=== PATIENT | female | born 1940 | race Asian ===

== ENCOUNTER 2017-02-12 20:00 | Emergency (ER) | payer MEDICARE, MEDICAID ==
[~2017-02-12] VITALS: Ht 160 cm; Wt 63.5 kg
[2017-02-12] MEDS ORDERED: HUMALOG100 UNIT/1 SUBQ (20:06)
[2017-02-12] MEDS ORDERED: LOVENOX10 M1 SUBQ (20:06)
[2017-02-12] MEDS ORDERED: WARFARIN SODIUM5 MG ORAL (20:06)
[2017-02-12] MEDS ORDERED: DONEPEZIL HCL5 MG ORAL (20:06)
[2017-02-12] MEDS ORDERED: DOCUSATE SODIU100 MG ORAL (20:06)
[2017-02-12] MEDS ORDERED: NAMENDA10 MG ORAL (20:06)
[2017-02-12 20:07] VITALS: BP 105/66
--- NOTE | 2017-02-12 20:14 | Emergency Room Report ---
History of Present Illness General Chief Complaint: Abdominal Pain Source: Patient, Medical Record (ASHLEIGH AVILA D.O.) Present Illness HPI Patient presents with complaints of elevated INR levels The patient had right hip surgery approximately 10-12 days ago patient was on Coumadin and Lovenox There is a note that the Coumadin was discontinued several days ago however repeat INR exam reveals elevated numbers Patient's blood work reviewed reveals INR of 15 3 days ago it appears to have decreased to 13 yesterday, and there was a reading of 9.6 today Patient is on Coumadin for DVT This was developed after the hip surgery (ASHLEIGH AVILA D.O.) Allergies: Coded Allergies: No Known Allergies (Unverified , 02/12/17) Patient History Limited by: medical condition Past Medical History: see triage record Pertinent Family History: unable to obtain Last Menstrual Period: n/a Reviewed Nursing Documentation: PMH: Agreed, PSxH: Agreed (ASHLEIGH AVILA D.O.) Nursing Documentation-PMH Past Medical History: No History, Except For Hx Hypertension: Yes Hx Diabetes: Yes - dm2 (ASHLEIGH AVILA D.O.) Review of Systems All Other Systems: limited - Other than the ones mentioned in the history of present illness all others are reviewed however they do stay limited due to the patient's mental status (ASHLEIGH AVILA D.O.) Physical Exam Vital Signs Date Time Temp Pulse Resp B/P (MAP) Pulse Ox O2 Delivery O2 Flow Rate FiO2 02/12/17 19:57 99.3 75 16 105/66 98 Sp02 EP Interpretation: reviewed, normal General Appearance: well appearing, no apparent distress Head: normocephalic, atraumatic Eyes: bilateral eye PERRL, bilateral eye EOMI ENT: normal pharynx, no angioedema Neck: full range of motion, supple Respiratory: lungs clear Cardiovascular #1: regular rate, rhythm, no edema Gastrointestinal: non tender, soft Musculoskeletal: other - No obvious expanding hematoma on the right side Neurologic: responsive - to physical stimuli Skin: other - Several areas of bruising and ecchymosis no obvious expanding hematomas or active hemorrhage, Lymphatic: no adenopathy (ASHLEIGH AVILA D.O.) Medical Decision Making Diagnostic Impression: Primary Impression: Supratherapeutic INR ER Course Received signout 76-year-old female history of hip fracture coming from [facility] with elevated INR INR currently is 8.[address] Flores (ass w/ Dr ibanez), there is no evidence of active bleeding, CT head is negative, will give the patient 1 mg vitamin K subcutaneous Discharge back to [facility] Laboratory Tests Test 02/12/17 21:00 White Blood Count 8.5 K/UL (4.8-10.8) Red Blood Count 4.04 M/UL (4.20-5.40) L Hemoglobin 13.0 G/DL (12.0-16.0) Hematocrit 38.5 % (37.0-47.0) Mean Corpuscular Volume 95 FL (80-99) Mean Corpuscular Hemoglobin 32.2 PG (27.0-31.0) H Mean Corpuscular Hemoglobin Concent 33.8 G/DL (32.0-36.0) Red Cell Distribution Width 12.6 % (11.6-14.8) Platelet Count 408 K/UL (150-450) Mean Platelet Volume 4.8 FL (6.5-10.1) L Neutrophils (%) (Auto) 65.4 % (45.0-75.0) Lymphocytes (%) (Auto) 24.4 % (20.0-45.0) Monocytes (%) (Auto) 6.9 % (1.0-10.0) Eosinophils (%) (Auto) 1.8 % (0.0-3.0) Basophils (%) (Auto) 1.5 % (0.0-2.0) Prothrombin Time 85.3 SEC (9.30-11.50) H Prothrombin Time INR 8.0 (0.9-1.1) *H PTT 65 SEC (23-33) H Sodium Level 136 mEQ/L (135-145) Potassium Level 4.5 mEQ/L (3.4-4.9) Chloride Level 99 mEQ/L (98-107) Carbon Dioxide Level 25 mEQ/L (20-30) Anion Gap 12 (5-15) Blood Urea Nitrogen 13 mg/dL (7-23) Creatinine 0.6 mg/dL (0.5-0.9) Estimate Glomerular Filtration Rate mL/min (>60) Glucose Level 106 mg/dL (74-106) Calcium Level 9.1 mg/dL (8.6-10.2) Total Bilirubin 0.4 mg/dL (0.0-1.2) Aspartate Amino Transferase (AST) 39 U/L (5-40) Alanine Aminotransferase (ALT) 48 U/L (3-33) H Alkaline Phosphatase 143 U/L (35-104) H Total Creatine Kinase 28 U/L (26-140) Creatine Kinase MB < 1.5 ng/mL (< 3.8) Creatine Kinase MB Relative Index 5.3 Troponin I < 0.30 ng/mL (<=0.30) Total Protein 7.2 g/dL (6.6-8.7) Albumin 3.2 g/dL (3.5-5.2) L Globulin 4.0 g/dL Albumin/Globulin Ratio 0.8 (1.0-2.7) L Lipase 93 U/L (< 60) H (Ania Zaman M.D.) Rhythm Strip Diag. Results EP Interpretation: yes Rate: 72 Rhythm: NSR, no PVC's, no ectopy (Ania Zaman M.D.) CT/MRI/US Diagnostic Results CT/MRI/US Diagnostic Results : Imaging Test Ordered: CT head Impression Received signout 76-year-old female history of hip fracture coming from SNF with elevated INR INR currently is 8.[address] Flores (assoc w/ Dr ibanez), there is no evidence of active bleeding, CT head is negative, will give the patient 1 mg vitamin K subcutaneous Discharge back to SNF (Ania Zaman M.D.) Last Vital Signs Date Time Temp Pulse Resp B/P (MAP) Pulse Ox O2 Delivery O2 Flow Rate FiO2 02/12/17 19:57 99.3 75 16 105/66 98 (ASHLEIGH AVILA D.O.) Disposition: XFER SNF Condition: Stable Additional Instructions: Patient's INR was 8.0 There is no evidence of bleeding CT head is negative 1 mg of vitamin K subcutaneous given Please continue to hold Coumadin tonight Please followup with patient's primary care within one day ASHLEIGH AVILA D.O. Feb 12, 2017 20:14 Ania Zaman M.D. Feb 12, 2017 22:06
[2017-02-12 21:30] LABS: BASOPHILS % (AUTO) 1.5 % (0.0-2.0); EOSINOPHILS % (AUTO) 1.8 % (0.0-3.0); LYMPHOCYTES % (AUTO) 24.4 % (20.0-45.0); MEAN CORPUSCULAR HEMOGLOBIN 32.2 PG (27.0-31.0); MEAN CORPUSCULAR HGB CONC 33.8 G/DL (32.0-36.0); MEAN CORPUSCULAR VOLUME 95 FL (80-99); MEAN PLATELET VOLUME 4.8 FL (6.5-10.1); MONOCYTES % (AUTO) 6.9 % (1.0-10.0); NEUTROPHILS % (AUTO) 65.4 % (45.0-75.0); PLATELET COUNT 408 K/UL (150-450); RED BLOOD COUNT 4.04 M/UL (4.20-5.40); RED CELL DISTRIBUTION WIDTH 12.6 % (11.6-14.8); WHITE BLOOD COUNT 8.5 K/UL (4.8-10.8)
[2017-02-12 21:37] LABS: ALANINE AMINOTRANSFERASE 48 U/L (3-33); ALBUMIN/GLOBULIN RATIO 0.8 (1.0-2.7); ANION GAP 12 (5-15); ASPARTATE AMINO TRANSFERASE 39 U/L (5-40); CALCIUM 9.1 mg/dL (8.6-10.2); CARBON DIOXIDE 25 mEQ/L (20-30); CHLORIDE 99 mEQ/L (98-107); CREATININE 0.6 mg/dL (0.5-0.9); HEMOLYSIS 6; LIPASE 93 U/L (< 60); POTASSIUM 4.5 mEQ/L (3.4-4.9); SODIUM 136 mEQ/L (135-145); TOTAL PROTEIN 7.2 g/dL (6.6-8.7); TROPONIN I < 0.30 ng/mL (<=0.30)
[2017-02-12 21:45] LABS: PROTHROMBIN TIME 85.3 SEC (9.30-11.50)
[2017-02-12 21:47] LABS: CKMB < 1.5 ng/mL (< 3.8)
[2017-02-12 22:38] VITALS: BP 116/65
[2017-02-12] MEDS ORDERED: Phytonadione 10 mg/mL 1ml amp ONE (22:48)
[2017-02-12 23:05] VITALS: BP 105/66
[2017-02-12] MEDS ORDERED: Phytonadione 10 mg/mL 1ml amp SUBQ ONE (23:30)
--- NOTE | 2017-02-13 09:02 | Diagnostic Imaging Report ---
Indication: Attain Technique: spiral acquisitions obtained through the brain. Angled axial and coronal 5 x 5 mm slices were reconstructed. No IV contrast utilized. Radiation dose was minimized using automated exposure control Total dose length product 1389 mGycm. CTDIvol(s) 70 mGy Comparison: none FINDINGS: No acute hemorrhage or edema. No mass effect or midline shift. There is age-related enlargement of the ventricles and extra axial CSF spaces. There is periventricular deep white matter ischemic change. Normal welsh-white differentiation. Visualized orbits are unremarkable. Visualized sinuses are unremarkable. Intact calvarium. 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 IMPRESSION: Chronic and age-related changes. Negative for acute intracranial bleed or mass effect This agrees with the preliminary interpretation provided overnight by [facility] teleradiology service. The CT scanner at [facility] is accredited by the [employer] and the scans are performed using protocols designed to limit radiation exposure to as low as reasonably achievable to attain images of sufficient resolution adequate for diagnostic evaluation
--- NOTE | 2017-02-13 16:30 | Cardiology Report ---
APPROVED REPORT EKG Measurement Heart [id number] ID [id number] Normal sinus rhythm Possible Inferior infarct, age undetermined Abnormal ECG
== END 2017-02-12 23:05 ==
LOC: EDBD 20:00 → EMR 20:42 → UNDOADMIN 20:50 → 4W 20:50 → EDBEDREQ 20:56 → CANBEDREQ 22:02 → EMR 23:05
DX: Z51.81 Encounter for therapeutic drug level monitoring (principal); Z79.01 Long term (current) use of anticoagulants; Z98.890 Other specified postprocedural states; I82.409 Acute embolism and thrombosis of unspecified deep veins of unspecified lower extremity; I10 Essential (primary) hypertension; E11.9 Type 2 diabetes mellitus without complications
CPT/HCPCS: 36415; 70450; 80053; 82550; 82553; 83690; 84484; 85025; 85610; 85730; 93005; 96372; 99284; J3430

== ENCOUNTER 2017-03-10 14:29 | Emergency (ER) | payer MEDICARE, MEDICAID ==
[~2017-03-10] VITALS: Ht 160 cm; Wt 63.5 kg
[~2017-03-10 14:29] MED LIST: DOCUSATE SODIU100 MG ORAL; DONEPEZIL HCL5 MG ORAL; HUMALOG100 UNIT/1 SUBQ; LOVENOX10 M1 SUBQ; NAMENDA10 MG ORAL; WARFARIN SODIUM5 MG ORAL
[2017-03-10 14:53] VITALS: BP 124/78
--- NOTE | 2017-03-10 15:09 | Emergency Room Report ---
History of Present Illness General Chief Complaint: Constipation Source: Family Member Present Illness HPI [id number] with Alzheimer dementia with ?constipation for 10 days Son changes patient - "lost track" if any BMs. Feels like it might have been 10 days Still urinating as normally although "dark and smelly" lately Not on narcotics for pain Urinated as normal this morning No previous abdpelvic surgeries No fever/chills, nausea/vomiting, diarrhea Not on Abx Allergies: Coded Allergies: No Known Allergies (Unverified , 02/12/17) Patient History Limited by: language barrier, medical condition Past Medical History: dementia Past Surgical History: other - Right hip surgery Pertinent Family History: none Social History: Denies: smoking, alcohol use, drug use Last Menstrual Period: na Now: No Immunizations: UTD Reviewed Nursing Documentation: PMH: Agreed, PSxH: Agreed Nursing Documentation-PMH Past Medical History: No History, Except For Hx Hypertension: Yes Hx Diabetes: Yes Review of Systems All Other Systems: negative except mentioned in HPI Physical Exam Vital Signs Date Time Temp Pulse Resp B/P (MAP) Pulse Ox O2 Delivery O2 Flow Rate FiO2 03/10/17 14:43 98.1 90 18 113/64 98 Room Air Sp02 EP Interpretation: reviewed, normal General Appearance: normal inspection, well appearing, no apparent distress, alert, non-toxic, other - Smiling, well appearing elderly lady Head: normocephalic, atraumatic Eyes: bilateral eye PERRL, bilateral eye EOMI ENT: normal ENT inspection, hearing grossly normal, normal voice Neck: normal inspection, full range of motion, supple, no bony tend Respiratory: normal inspection, lungs clear, normal breath sounds, no respiratory distress, no retraction, no wheezing Cardiovascular #1: regular rate, rhythm, no edema Gastrointestinal: normal inspection, normal bowel sounds, non tender, soft, no mass, no bruit, non-distended, no guarding, no hernia Genitourinary: no CVA tenderness Musculoskeletal: normal inspection, back normal, normal range of motion, Jason' s Sign negative Neurologic: normal inspection, alert, responsive, speech normal Psychiatric: normal inspection, judgement/insight normal, mood/affect normal Skin: normal inspection, normal color, no rash Medical Decision Making Diagnostic Impression: Primary Impression: Constipation Qualified Codes: K59.00 - Constipation, unspecified Additional Impression: Urinary tract infection Qualified Codes: N30.01 - Acute cystitis with hematuria ER Course VSS. Afebrile Abd non-focal No peritonitis No risk factors for SBO Low suspicion for acute bacterial/surgical process UA: Nitrite positive. First Abx dose given here Abd 2-view: No air fluid levels, constipation Was given PO and SC meds to relieve constipation in ED Rx Macrobid, colace DC home with son Other X-Ray Diagnostic Results Other X-Ray Diagnostic Results : X-Ray ordered: Abdomen # of Views/Limited Vs Complete: 2 View Indication: Other - Constipated Interpretation: nonspecific bowel gas, other - No air/fluid levels. Diffuse constipation Electronically Signed by: Dr Anibal Campbell MD Last Vital Signs Date Time Temp Pulse Resp B/P (MAP) Pulse Ox O2 Delivery O2 Flow Rate FiO2 03/10/17 14:53 98.0 87 22 124/78 98 Room Air Status: improved Disposition: HOME, SELF-CARE Scripts Nitrofurantoin Monohyd/M-Cryst* (MACROBID 100 MG*) 100 Mg Capsule 100 MG ORAL EVERY 12 HOURS for 7 Days, #13 CAP Prov: ANIBAL CAMPBELL M.D. 03/10/17 Docusate Sodium* (COLACE*) 100 Mg Capsule 100 MG ORAL DAILY for 7 Days, #7 CAP Prov: ANIBAL CAMPBELL M.D. 03/10/17 ANIBAL CAMPBELL M.D. Mar 10, 2017 15:09
[2017-03-10] MEDS ORDERED: Fleet's Enema 133ml RECTAL ONE (15:45)
[2017-03-10] MEDS ORDERED: Magnesium Citrate Liq Btl ORAL ONE (15:45)
[2017-03-10 15:50] LABS: APPEARANCE,URINE SLIGHTLY CLOUDY; KETONES,URINE NEGATIVE (NEGATIVE); LEUKOCYTE ESTERASE ,URINE 2+ (NEGATIVE); NITRITE,URINE POSITIVE (NEGATIVE); PH,URINE 6 (4.5-8.0); PROTEIN,URINE 2+ (NEGATIVE); UROBILINOGEN,URINE NORMAL MG/DL (0.0-1.0)
[2017-03-10 16:05] VITALS: BP 120/84
[2017-03-10] MEDS ORDERED: NITROFURANTOIN100 M2 ORAL (16:07)
[2017-03-10] MEDS ORDERED: COLACE100 MG ORAL (16:07)
[2017-03-10 16:10] LABS: BACTERIA,URINE MANY /HPF; ICTOTEST NEGATIVE; SQUAMOUS EPITHELIAL CELL,UR MODERATE /LPF (NONE/OCC); WBC,URINE 20-30 /HPF (0 - 2)
[2017-03-10 17:25] VITALS: BP 117/80
--- NOTE | 2017-03-11 11:06 | Diagnostic Imaging Report ---
Indication: Constipation Technique: Supine and left lateral decubitus views of the abdomen Comparison: none Findings: Bowel gas pattern is unremarkable. Mild retained stool is demonstrated, with more considerable stool in the rectum. No gaseous distention of large or small bowel, significant air-fluid levels, or evidence of free intraperitoneal air. No unusual masses or calcifications. There is right hip arthroplasty prosthesis. Bones are osteoporotic Impression: Possible minimal constipation. No acute process. Findings as noted This agrees with the preliminary interpretation provided by the emergency room physician
== END 2017-03-10 17:25 | disposition home or self-care (01) ==
LOC: EMR 15:12
DX: K59.00 Constipation, unspecified (principal); N39.0 Urinary tract infection, site not specified; I10 Essential (primary) hypertension; E11.9 Type 2 diabetes mellitus without complications
CPT/HCPCS: 74020; 81003; 87086; 87181; 99284

== ENCOUNTER 2017-08-03 10:17 | Emergency (ER) | payer MEDICAID, MEDICARE ==
[~2017-08-03] VITALS: Ht 154.9 cm; Wt 45.4 kg
[~2017-08-03 10:17] MED LIST changes: +COLACE100 MG ORAL; +NITROFURANTOIN100 M2 ORAL
[2017-08-03 10:35] VITALS: BP 131/87
--- NOTE | 2017-08-03 11:09 | Emergency Room Report ---
History of Present Illness General Chief Complaint: Lower Extremity Injury Source: Patient, Family Member, EMS Present Illness HPI 76yo f presents with inability to walk for the last 10 days after a fall Her son only realized now that she may have a fracture is initially just thought it may be bruising However the patient has not been able to bear weight still so he brought her in for an evaluation She has been in her usual state of mental status as she has dementia but has not had any loss of consciousness or changes in mentation She has not had any fevers no other problems at all She only complains of pain when he tries to move her left leg Allergies: Coded Allergies: No Known Allergies (Unverified , 08/03/17) Patient History Limited by: language barrier, age Past Medical History: see triage record Reviewed Nursing Documentation: PMH: Agreed, PSxH: Agreed Nursing Documentation-PMH Hx Cardiac Problems: No - AZHEIMERS AND RT HIP SURGERY Hx Hypertension: Yes Hx Diabetes: Yes Review of Systems All Other Systems: negative except mentioned in HPI Physical Exam Vital Signs Date Time Temp Pulse Resp B/P (MAP) Pulse Ox O2 Delivery O2 Flow Rate FiO2 08/03/17 10:17 98.5 88 16 124/83 97 Room Air 98.4 Sp02 EP Interpretation: reviewed, normal General Appearance: no apparent distress, alert, non-toxic Head: normocephalic Eyes: bilateral eye normal inspection, bilateral eye PERRL, bilateral eye EOMI ENT: normal ENT inspection, hearing grossly normal, normal pharynx, no angioedema, normal voice, moist mucus membranes Neck: normal inspection, full range of motion, supple, supple/symm/no masses Respiratory: chest non-tender, lungs clear, normal breath sounds, chest symmetrical, palpation of chest normal Cardiovascular #1: normal peripheral pulses, regular rate, rhythm Cardiovascular #2: 2+ radial (R), 2+ radial (L) Gastrointestinal: normal inspection, non tender, soft, no mass, no guarding, no rebound Rectal: deferred Genitourinary: normal inspection, no CVA tenderness Musculoskeletal: back normal, gait/station normal, normal range of motion - Pain with ranging L hip , possibly left knee; no deformity or effusions or crepitus or bruising, non-tender, no calf tenderness Neurologic: alert, responsive, patient care secretary III-XII nml as tested - Grossly intact, motor strength/tone normal, sensory intact, speech normal Psychiatric: judgement/insight normal, memory normal, mood/affect normal, no suicidal/homicidal ideation Skin: normal color, no rash, warm/dry, normal turgor Lymphatic: no adenopathy Medical Decision Making Reaction to Intervention: No change Diagnostic Impression: Primary Impression: Hip pain ER Course Patient has had an unremarkable workup. Son feels comfortable taking patient home, as she has been this way for 10 days, with limited mobility. XR's negative for fracture, and ct pelvis also negative for hip or pelvic fx. Labs wnl, as is MSK exam and neuro exam, except for gait testing which was deferred as she hasn't walked in 10 days. Will recommend outpt f/u. I do suspect this difficulty ambulating is possibly 2/2 pain and need for rehab in the setting of dementia. Other X-Ray Diagnostic Results Other X-Ray Diagnostic Results #1: X-Ray ordered: L hip # of Views/Limited Vs Complete: 2 View Indication: Pain EP Interpretation: Yes PA Xray: Interpretation reviewed Interpretation: no dislocation, no soft tissue swelling, no fractures Impression: No acute disease Electronically Signed by: Segun Fink MD Other X-Ray Diagnostic Results #2: X-Ray ordered: L knee # of Views/Limited Vs Complete: 3 View Indication: Pain EP Interpretation: Yes PA Xray: Interpretation reviewed Interpretation: no dislocation, no soft tissue swelling, no fractures Impression: No acute disease Electronically Signed by: Segun Fink MD Other X-Ray Diagnostic Results #3: X-Ray ordered: pelvis # of Views/Limited Vs Complete: 1 View Indication: Pain EP Interpretation: Yes PA Xray: Interpretation reviewed Interpretation: no dislocation, no soft tissue swelling, no fractures Impression: No acute disease Electronically Signed by: Segun Fink MD CT/MRI/US Diagnostic Results CT/MRI/US Diagnostic Results : Imaging Test Ordered: pelvis ct, noncontrast Impression no fx/dislocation; +stool in rectum c/w constipation Last Vital Signs Date Time Temp Pulse Resp B/P (MAP) Pulse Ox O2 Delivery O2 Flow Rate FiO2 08/03/17 10:35 97.6 83 20 131/87 96 Room Air 97.6 Status: improved Condition: Stable SEGUN FINK M.D Aug 03, 2017 11:09
[2017-08-03 12:10] VITALS: BP 117/74
[2017-08-03 13:08] LABS: BASOPHILS % (AUTO) 0.6 % (0.0-2.0); EOSINOPHILS % (AUTO) 1.3 % (0.0-3.0); HEMATOCRIT 44.4 % (37.0-47.0); HEMOGLOBIN 14.9 G/DL (12.0-16.0); MEAN CORPUSCULAR VOLUME 91 FL (80-99); MONOCYTES % (AUTO) 7.8 % (1.0-10.0); NEUTROPHILS % (AUTO) 65.3 % (45.0-75.0); PLATELET COUNT 370 K/UL (150-450); RED BLOOD COUNT 4.86 M/UL (4.20-5.40); RED CELL DISTRIBUTION WIDTH 12.8 % (11.6-14.8); WHITE BLOOD COUNT 9.4 K/UL (4.8-10.8)
[2017-08-03 13:19] LABS: ANION GAP 7 mmol/L (5-15); BLOOD UREA NITROGEN 13 mg/dL (7-18); CALCIUM 9.4 MG/DL (8.5-10.1); CARBON DIOXIDE 28 MMOL/L (21-32); CHLORIDE 102 MMOL/L (98-107); CREATININE 0.7 MG/DL (0.55-1.30); POTASSIUM 4.1 MMOL/L (3.5-5.1); SODIUM 137 MMOL/L (136-145)
[2017-08-03 13:23] LABS: ALANINE AMINOTRANSFERASE 14 U/L (12-78); ALBUMIN 2.6 G/DL (3.4-5.0); ALBUMIN/GLOBULIN RATIO 0.6 (1.0-2.7); ALKALINE PHOSPHATASE 95 U/L (46-116); ASPARTATE AMINO TRANSFERASE 17 U/L (15-37)
[2017-08-03 14:10] VITALS: BP 108/64
[2017-08-03] MEDS ORDERED: IBUPROFEN600 MG ORAL (15:03)
[2017-08-03] MEDS ORDERED: COLACE100 MG ORAL (15:03)
[2017-08-03 15:30] VITALS: BP 108/64
--- NOTE | 2017-08-04 09:50 | Diagnostic Imaging Report ---
Indication: Pelvic pain Technique: CT pelvis was performed utilizing automated exposure control without intravenous contrast material. Axial and coronal images were generated. CT dose: Total DLP 317 mGycm; CTDI vol 9.6 mGy Comparison: Plain radiographs of the pelvis from earlier the same day Findings: There is a right hip arthroplasty with adjacent streak artifact somewhat limiting evaluation. No gross displaced fracture is identified. There is osteopenia. Mild degenerative changes are noted of the partially visualized spine, sacroiliac joints and left hip. Atherosclerotic changes are present. The appendix is normal. There is moderate rectal stool. Impression: Right hip arthroplasty with adjacent streak artifact somewhat limiting evaluation but no gross displaced fracture or dislocation. Clinical correlation recommended. Other findings as above. The CT scanner at [facility] is accredited by the [employer] and the scans are performed using protocols designed to limit radiation exposure to as low as reasonably achievable to attain images of sufficient resolution adequate for diagnostic evaluation.
--- NOTE | 2017-08-04 09:51 | Diagnostic Imaging Report ---
Indication: Pelvic pain Technique: XRAY Pelvis 1v Comparison: None Findings: There is no radiographically evident fracture or dislocation. There is a right hip hemiarthroplasty. Osteopenia is noted. Mild degenerative changes are seen of the left hip. Impression: No radiographic evidence of acute osseous abnormality. Clinical correlation recommended. Right hip hemiarthroplasty.
--- NOTE | 2017-08-04 09:52 | Diagnostic Imaging Report ---
Indication: Left hip pain Technique: Left hip 2 views Comparison: None Findings: There is no radiographically evident left hip fracture. Osteopenia is noted. Mild degenerative changes of the left hip are seen. Impression: No radiographically evident fracture or dislocation. Clinical correlation recommended.
--- NOTE | 2017-08-04 10:14 | Diagnostic Imaging Report ---
Indication: Left knee pain Technique: XRAY Knee 3v LT Comparison: None Findings: There is no acute fracture or dislocation. Osteopenia is noted. There is mild degenerative spurring of the patella. Suprapatellar enthesophyte is present. Impression: No radiographically evident fracture or dislocation. Osteopenia. Mild degenerative changes.
== END 2017-08-03 15:30 | disposition home or self-care (01) ==
LOC: EDBD 10:17 → EMR 12:03
DX: M25.552 Pain in left hip (principal); E11.9 Type 2 diabetes mellitus without complications; I10 Essential (primary) hypertension; G30.9 Alzheimer's disease, unspecified; F02.80 Dementia in other diseases classified elsewhere, unspecified severity, without behavioral disturbance, psychotic disturbance, mood disturbance, and anxiety; M25.562 Pain in left knee; M85.862 Other specified disorders of bone density and structure, left lower leg; R10.2 Pelvic and perineal pain; M85.88 Other specified disorders of bone density and structure, other site; Z96.641 Presence of right artificial hip joint; W18.30XA Fall on same level, unspecified, initial encounter; Y92.9 Unspecified place or not applicable
CPT/HCPCS: 36415; 72170; 72192; 73502; 80053; 85025; 99284